=== PATIENT | female | born 1970 | race Caucasian/White ===

== ENCOUNTER → 2016-08-23 | Outpatient (CLI) | payer BC ==
--- NOTE | 2016-08-23 16:03 | REP ---
MR CERVICAL SPINE WITHOUT CONTRAST: HISTORY: Cervicalgia. A disc bulge is present at the C3-4 level. There is minimal effacement of the thecal sac without spinal cord compression. Facet hypertrophy is present on the left. This produces mild narrowing of the left C3 neural foramen. The right C3 neural foramen is patent. A disc bulge is present at the C4-5 level. There is minimal effacement of the thecal sac without spinal cord compression. Facet hypertrophy is present on the right. This produces minimal narrowing of the right C4 neural foramen. The left C4 neural foramen is patent. A disc bulge and small right paracentral disc protrusion with associated osteophyte formation are present at the C5-6 level. There is mild effacement of the thecal sac without spinal cord compression. Uncinate process hypertrophy is present on the right. This produces minimal narrowing of the C5 neural foramen. The left C5 neural foramen is patent. A small left paracentral disc protrusion is present at the C6-7 level. There is minimal effacement of the thecal sac without spinal cord compression. The C6 neural foramina are patent. There is no other disc bulge or herniation. The remaining neural foramina are patent. The spinal cord is normal in signal and intensity. There is no intradural or extramedullary lesion. The C4-5 through C6-7 intervertebral disc are decreased in height consistent with disc degeneration. Normal signal intensity is present in the cervical vertebral bodies. IMPRESSION: There is cervical spondylosis at the C3-4 through C6-7 levels without spinal cord compression. Signed by Shaq Calderon MD 08/23/2016 04:06 P
== END ==
LOC: M RAD 14:36
PROVIDERS: ATTEND Physician Assistant Medical
DX: M43.02 Spondylolysis, cervical region (principal)

== ENCOUNTER → 2016-08-29 | Outpatient (CLI) | payer BC ==
--- NOTE | 2016-08-30 08:11 | REPMRS ---
Patient History The patient states she had a clinical breast exam in 07/2016. Family history of breast cancer in mother at age 54. Digital Woman Screen Mammo: August 29, 2016 - Exam #: [id number] Bilateral CC and MLO view(s) were taken. Technologist: Audelia Jacob, Technologist Prior study comparison: July 05, 2015, digital woman screen mammo performed at [facility] to [facility]. June 24, 2014, digital woman screen mammo performed at [facility]. March 02, 2013, digital woman screen mammo performed at [facility]. FINDINGS: There are scattered fibroglandular densities. There has been no change in the appearance of the mammogram from the prior studies. There is a mild amount of scattered fibroglandular density which is fairly symmetric. There is no interval development of dominant mass, architectural distortion, or clustered microcalcification suggestive of malignancy. ASSESSMENT: BI-RADS/ACR category 1 mammogram. Negative. Recommendation Routine screening mammogram in 1 year (for women over age 40). This mammogram was interpreted with the aid of an FDA-approved computer-aided dectection system. Electronically Signed By: Darin Gottlieb MD 08/30/16 0811
== END ==
LOC: M WHC 16:26
PROVIDERS: ATTEND Physician Assistant Medical
DX: Z12.31 Encounter for screening mammogram for malignant neoplasm of breast (principal)

== ENCOUNTER → 2016-09-05 | Outpatient (REF) | payer BC ==
[2016-09-05 11:57] LABS: BASO # 0.1 K/mm3 (0.0-0.2); BASO % 0.8 % (0.0-1.0); EOS # 0.1 K/mm3 (0.0-0.50); EOS % 1.5 % (0.0-3.0); LYMPH # 1.8 K/mm3 (1.5-4.5); MEAN CORPUSCULAR HGB CONC 33.2 g/dl (32.0-36.5); MEAN CORPUSCULAR VOLUME 93.2 fl (80.0-96.0); MONO # 0.3 K/mm3 (0.0-0.8); MONO % 4.4 % (0.0-5.0); NEUTROPHILS % 68.3 % (36.0-66.0); RED CELL DISTRIBUTION WIDTH 13.1 % (11.5-14.5); WHITE BLOOD COUNT 7.2 K/mm3 (4.0-10.0)
== END ==
LOC: M LAB REF 11:27
PROVIDERS: ATTEND Physician Assistant Medical
DX: M62.50 Muscle wasting and atrophy, not elsewhere classified, unspecified site (principal)

== ENCOUNTER → 2016-11-11 | Outpatient (REF) | payer BC ==
[2016-11-11 10:58] LABS: ALBUMIN/GLOBULIN RATIO 1.33 (1.00-1.93); ALKALINE PHOSPHATASE 94 U/L (45-117); ALT/SGPT 12 U/L (12-78); ANION GAP 7 MEQ/L (8-16); AST/SGOT 15 U/L (15-37); BILIRUBIN,TOTAL 0.5 MG/DL (0.2-1.0); BLOOD UREA NITROGEN 18 MG/DL (7-18); CALCIUM LEVEL 9.1 MG/DL (8.5-10.1); CARBON DIOXIDE LEVEL 30 MEQ/L (21-32); CHLORIDE LEVEL 103 MEQ/L (98-107); CREATININE FOR GFR 0.73 MG/DL (0.55-1.02); GLOMERULAR FILTRATION RATE > 60.0 (>58); GLUCOSE, FASTING 80 MG/DL (70-105); POTASSIUM SERUM 3.9 MEQ/L (3.5-5.1); SODIUM LEVEL 140 MEQ/L (136-145)
[2016-11-13 00:06] LABS: Lyme Disease IgG/IgM Antibodie <0.91 ISR (0.00-0.90); Lyme Disease IgM Ab Quantitati <0.80 index (0.00-0.79); SJOGREN'S ANTI SS-A <0.2 AI (0.0-0.9); SJOGREN'S ANTI SS-B <0.2 AI (0.0-0.9)
[2016-11-14 09:57] LABS: ALBUMIN 4.35 GM/DL (3.29-5.55); ALBUMIN % 62.1 % (55.8-66.1); GAMMA GLOBULIN % 12.1 % (11.1-18.8)
== END ==
LOC: M LAB REF 10:15
PROVIDERS: ATTEND Physician Assistant Medical
DX: M19.90 Unspecified osteoarthritis, unspecified site (principal); R01.1 Cardiac murmur, unspecified

== ENCOUNTER → 2016-11-18 | Outpatient (REF) | payer BC | LOC: M LAB REF 10:32 | PROVIDERS: ATTEND Physician Assistant Medical | DX: M62.50 Muscle wasting and atrophy, not elsewhere classified, unspecified site (principal) ==

== ENCOUNTER → 2017-01-01 | Outpatient (CLI) | payer BC ==
--- NOTE | 2017-01-01 16:36 | REP ---
Clinical: Pain. Technique: AP, lateral, bilateral oblique views of the left hand. Findings: Mild age-related degenerative changes are appreciated primarily involving the interphalangeal joints. No acute fracture dislocation. Remainder examination appears normal. Impression: Mild degenerative changes involving the interphalangeal joints. Signed by Aden Green MD 01/01/2017 04:27 P
== END ==
LOC: M RAD 16:10
PROVIDERS: ATTEND Physician Assistant Medical
DX: M19.042 Primary osteoarthritis, left hand (principal)

== ENCOUNTER → 2017-02-20 | Outpatient (REF) | payer BC ==
[2017-02-20 17:31] LABS: ALBUMIN/GLOBULIN RATIO 1.33 (1.00-1.93); ALKALINE PHOSPHATASE 80 U/L (45-117); ALT/SGPT 13 U/L (12-78); ANION GAP 9 MEQ/L (8-16); AST/SGOT 18 U/L (15-37); BILIRUBIN,TOTAL 0.9 MG/DL (0.2-1.0); BLOOD UREA NITROGEN 13 MG/DL (7-18); CALCIUM LEVEL 9.1 MG/DL (8.5-10.1); CARBON DIOXIDE LEVEL 27 MEQ/L (21-32); CHLORIDE LEVEL 104 MEQ/L (98-107); CREATININE FOR GFR 0.78 MG/DL (0.55-1.02); GLOMERULAR FILTRATION RATE > 60.0 (>58); GLUCOSE, FASTING 141 MG/DL (70-105); POTASSIUM SERUM 3.7 MEQ/L (3.5-5.1); SODIUM LEVEL 140 MEQ/L (136-145)
[2017-02-20 17:37] LABS: BASO % 0.5 % (0.0-1.0); EOS # 0.1 K/mm3 (0.0-0.50); EOS % 0.9 % (0.0-3.0); LYMPH # 1.7 K/mm3 (1.5-4.5); LYMPH % 27.6 % (24.0-44.0); MEAN CORPUSCULAR HEMOGLOBIN 32.4 pg (27.0-33.0); MEAN CORPUSCULAR HGB CONC 34.2 g/dl (32.0-36.5); MEAN CORPUSCULAR VOLUME 94.8 fl (80.0-96.0); MONO # 0.2 K/mm3 (0.0-0.8); MONO % 3.4 % (0.0-5.0); NEUTROPHILS # 4.2 K/mm3 (1.8-7.7); NEUTROPHILS % 66.2 % (36.0-66.0); RED CELL DISTRIBUTION WIDTH 12.3 % (11.5-14.5); WHITE BLOOD COUNT 6.3 K/mm3 (4.0-10.0)
== END ==
LOC: M LAB REF 17:04
PROVIDERS: ATTEND Physician Assistant Medical
DX: R00.2 Palpitations (principal)

== ENCOUNTER → 2017-02-26 | Outpatient (REF) | payer BC ==
[2017-02-26 13:30] LABS: ALBUMIN 3.8 GM/DL (3.2-5.2); ALBUMIN/GLOBULIN RATIO 1.27 (1.00-1.93); ALKALINE PHOSPHATASE 86 U/L (45-117); ALT/SGPT 11 U/L (12-78); ANION GAP 8 MEQ/L (8-16); AST/SGOT 20 U/L (15-37); BILIRUBIN,TOTAL 0.5 MG/DL (0.2-1.0); BLOOD UREA NITROGEN 11 MG/DL (7-18); CALCIUM LEVEL 8.9 MG/DL (8.5-10.1); CARBON DIOXIDE LEVEL 24 MEQ/L (21-32); CHLORIDE LEVEL 107 MEQ/L (98-107); CHOLESTEROL LEVEL 168 MG/DL (<200); CREATININE FOR GFR 0.59 MG/DL (0.55-1.02); GLOMERULAR FILTRATION RATE > 60.0 (>58); GLUCOSE, FASTING 93 MG/DL (70-105); POTASSIUM SERUM 4.1 MEQ/L (3.5-5.1); SODIUM LEVEL 139 MEQ/L (136-145); TOTAL PROTEIN 6.8 GM/DL (6.4-8.2); TRIGLYCERIDES LEVEL 60 MG/DL (<150)
== END ==
LOC: M LAB REF 12:58
PROVIDERS: ATTEND Physician Assistant Medical
DX: R73.9 Hyperglycemia, unspecified (principal); Z68.37 Body mass index [BMI] 37.0-37.9, adult

== ENCOUNTER → 2017-05-06 | Outpatient (CLI) | payer BC ==
--- NOTE | 2017-05-07 06:01 | REP ---
DIAGNOSTIC MAMMOGRAM RIGHT BREAST WITH RIGHT BREAST ULTRASOUND: Diagnostic mammogram right breast performed. Reportedly there is a palpable abnormality inferior to the right nipple with redness and pain for 3 days. There is a family history of breast cancer in mother. Comparison made with multiple prior exams, most recent of which is 08/29/2016. Moderate fibroglandular tissue appears essentially unchanged with no mammographic evidence of a new mass or clustered microcalcifications. Real-time sonographic evaluation of the right breast is performed inferior to the nipple at the site of pain and redness. There is a subcutaneous heterogeneous nodule present which measures 0.8 x 1.1 x 0.9 cm. There is surrounding Doppler color flow. This may represent a subcutaneous sebaceous cyst. This is probably benign. IMPRESSION: ACR 3 probably benign. No change in the appearance of the mammogram of the right breast. By ultrasound inferior to the right nipple is a subcutaneous nodule which is quite superficial and given the pain and redness at this location, this probably represents a sebaceous cyst or infected subcutaneous cyst. Recommend followup ultrasound after appropriate treatment. This mammogram was interpreted with the aid of an FDA-approved computer-aided detection system. A. Negative x-ray reports should not delay biopsy if a dominant or clinically suspicious mass is present. B. Four to eight percent of cancers are not identified by x-ray. C. Adenosis and dense breasts may obscure an underlying neoplasm. The patient states she had a clinical breast exam in 04/2017. The patient letter being requested is M3. Signed by Chidi Kelley MD 05/07/2017 09:41 A
== END ==
LOC: M RAD 15:13
PROVIDERS: ATTEND Physician Assistant Medical
DX: N61.1 Abscess of the breast and nipple (principal)
CPT/HCPCS: 76642; G0206

== ENCOUNTER → 2017-05-07 | Outpatient (REF) | payer BC | LOC: M LAB REF 13:24 | PROVIDERS: ATTEND Surgery | DX: N61.1 Abscess of the breast and nipple (principal); L72.0 Epidermal cyst ==

== ENCOUNTER → 2017-09-16 | Outpatient (REF) | payer BC ==
[2017-09-16 14:50] LABS: BASO % 0.6 % (0.0-1.0); EOS # 0.2 10^3/uL (0.0-0.50); EOS % 2.4 % (0.0-3.0); HEMATOCRIT 43.4 % (36.0-47.0); HEMOGLOBIN 14.6 g/dl (12.0-16.0); IMMATURE GRANULOCYTE % 0.3 % (0-0); LYMPH # 1.6 10^3/uL (1.5-4.5); LYMPH % 23.2 % (24.0-44.0); MEAN CORPUSCULAR HEMOGLOBIN 31.2 pg (27.0-33.0); MEAN CORPUSCULAR HGB CONC 33.6 g/dl (32.0-36.5); MEAN CORPUSCULAR VOLUME 92.7 fl (80.0-96.0); MONO # 0.3 10^3/uL (0.0-0.8); MONO % 4.7 % (0.0-5.0); NEUTROPHILS # 4.7 10^3/uL (1.8-7.7); NEUTROPHILS % 68.8 % (36.0-66.0); PLATELET COUNT, AUTOMATED 285 10^3/uL (150-450); RED BLOOD COUNT 4.68 10^6/uL (4.00-5.40); RED CELL DISTRIBUTION WIDTH 13.1 % (11.5-14.5); WHITE BLOOD COUNT 6.8 10^3/uL (4.0-10.0)
[2017-09-16 15:10] LABS: ALBUMIN 4.4 GM/DL (3.2-5.2); ALBUMIN/GLOBULIN RATIO 1.38 (1.00-1.93); ALKALINE PHOSPHATASE 75 U/L (45-117); ALT/SGPT 11 U/L (12-78); ANION GAP 7 MEQ/L (8-16); AST/SGOT 14 U/L (7-37); BILIRUBIN,TOTAL 0.3 MG/DL (0.2-1.0); BLOOD UREA NITROGEN 9 MG/DL (7-18); CALCIUM LEVEL 9.2 MG/DL (8.5-10.1); CARBON DIOXIDE LEVEL 29 MEQ/L (21-32); CHLORIDE LEVEL 103 MEQ/L (98-107); CREATININE FOR GFR 0.57 MG/DL (0.55-1.30); FERRITIN 138 NG/ML (8-252); GLOMERULAR FILTRATION RATE > 60.0 (>58); GLUCOSE, FASTING 96 MG/DL (70-100); IRON (FE) 39 UG/DL (50-170); MAGNESIUM LEVEL 2.2 MG/DL (1.8-2.4); PERCENT SATURATION 12.6 % (13.2-45.0); PHOSPHORUS LEVEL 3.2 MG/DL (2.5-4.9); POTASSIUM SERUM 3.9 MEQ/L (3.5-5.1); SODIUM LEVEL 139 MEQ/L (136-145); TOTAL IRON BINDING CAPACITY 310 UG/DL (250-450); TOTAL PROTEIN 7.6 GM/DL (6.4-8.2)
[2017-09-16 15:13] LABS: TOTAL 25(OH) VITAMIN D 15.6 NG/ML (30.0-100.0)
[2017-09-16 15:14] LABS: FOLATE > 24.0 NG/ML
[2017-09-16 15:15] LABS: ESTIMATED AVERAGE GLUCOSE 91 MG/DL (60-110); HEMOGLOBIN A1c 4.8 %
[2017-09-16 15:18] LABS: VITAMIN B12 LEVEL 1505 PG/ML
== END ==
LOC: M LAB REF 14:31
DX: K91.2 Postsurgical malabsorption, not elsewhere classified (principal); Z98.84 Bariatric surgery status; E55.9 Vitamin D deficiency, unspecified
CPT/HCPCS: 82746

== ENCOUNTER → 2017-10-03 | Outpatient (CLI) | payer BC | LOC: M WHC 09:27 | DX: Z12.31 Encounter for screening mammogram for malignant neoplasm of breast (principal) | CPT/HCPCS: 77067 ==

== ENCOUNTER → 2017-10-07 | Outpatient (CLI) | payer BC ==
[2017-10-08 10:17] LABS: HEPATITIS B SURFACE ANTIGEN NEGATIVE (NEGATIVE)
[2017-10-09 10:14] LABS: HEPATITIS B CORE ANTIBODY IGG Negative (Negative)
== END ==
LOC: M WUC 15:10
DX: Z11.59 Encounter for screening for other viral diseases (principal)
CPT/HCPCS: 87340

== ENCOUNTER → 2017-10-09 | Outpatient (CLI) | payer BC ==
[2017-10-10 10:16] LABS: HEPATITIS B SURFACE ANTIBODY POSITIVE (POSITIVE)
== END ==
LOC: M LAB 13:18
DX: Z11.2 Encounter for screening for other bacterial diseases (principal)
CPT/HCPCS: 86706

== ENCOUNTER → 2018-02-24 | Outpatient (CLI) | payer BC ==
[2018-02-24 18:10] LABS: ALBUMIN 3.8 GM/DL (3.2-5.2); ALBUMIN/GLOBULIN RATIO 1.36 (1.00-1.93); ALKALINE PHOSPHATASE 87 U/L (45-117); ALT/SGPT 8 U/L (12-78); ANION GAP 8 MEQ/L (8-16); AST/SGOT 11 U/L (7-37); BILIRUBIN,TOTAL 0.3 MG/DL (0.2-1.0); BLOOD UREA NITROGEN 14 MG/DL (7-18); CALCIUM LEVEL 8.9 MG/DL (8.5-10.1); CARBON DIOXIDE LEVEL 28 MEQ/L (21-32); CHLORIDE LEVEL 107 MEQ/L (98-107); CREATININE FOR GFR 0.56 MG/DL (0.55-1.30); FERRITIN 103 NG/ML (8-252); GLOMERULAR FILTRATION RATE > 60.0 (>58); GLUCOSE, FASTING 123 MG/DL (70-100); IRON (FE) 62 UG/DL (50-170); MAGNESIUM LEVEL 1.7 MG/DL (1.8-2.4); PERCENT SATURATION 23.6 % (13.2-45.0); POTASSIUM SERUM 3.3 MEQ/L (3.5-5.1); SODIUM LEVEL 143 MEQ/L (136-145); TOTAL IRON BINDING CAPACITY 263 UG/DL (250-450); TOTAL PROTEIN 6.6 GM/DL (6.4-8.2)
[2018-02-24 18:25] LABS: TOTAL 25(OH) VITAMIN D 23.8 NG/ML (30.0-100.0)
[2018-02-24 18:59] LABS: BASO % 0.2 % (0.0-1.0); EOS % 0.1 % (0.0-3.0); HEMOGLOBIN 13.8 g/dl (12.0-15.5); IMMATURE GRANULOCYTE % 0.4 % (0-3.0); LYMPH # 0.7 10^3/uL (1.5-4.5); LYMPH % 8.5 % (24.0-44.0); MEAN CORPUSCULAR HEMOGLOBIN 31.9 pg (27.0-33.0); MEAN CORPUSCULAR HGB CONC 33.7 g/dl (32.0-36.5); MEAN CORPUSCULAR VOLUME 94.7 fl (80.0-96.0); MONO # 0.3 10^3/uL (0.0-0.8); MONO % 3.4 % (0.0-5.0); NEUTROPHILS # 7.1 10^3/uL (1.8-7.7); NEUTROPHILS % 87.4 % (36.0-66.0); PLATELET COUNT, AUTOMATED 283 10^3/uL (150-450); RED BLOOD COUNT 4.33 10^6/uL (4.00-5.40); WHITE BLOOD COUNT 8.1 10^3/uL (4.0-10.0)
[2018-02-24 22:18] LABS: ESTIMATED AVERAGE GLUCOSE 94 MG/DL (60-110); HEMOGLOBIN A1c 4.9 %
[2018-02-24 23:34] LABS: VITAMIN B12 LEVEL > 2000 PG/ML (247-911)
[2018-02-27 12:46] LABS: PRETREATED FOLATE FOR RBCFOL 17.3 NG/ML; RBC FOLATE 886.1 NG/ML (280-791)
== END ==
LOC: M WUC 11:00
DX: K91.2 Postsurgical malabsorption, not elsewhere classified (principal); Z98.84 Bariatric surgery status; E55.9 Vitamin D deficiency, unspecified
CPT/HCPCS: 83550

== ENCOUNTER 2018-11-18 07:26 | Emergency (ER) | payer BC ==
[~2018-11-18] VITALS: Ht 152.4 cm; Wt 67.1 kg
[2018-11-18] MEDS ORDERED: PEPT262T2 PO (07:34)
[2018-11-18] MEDS ORDERED: CITA40TA4 PO (07:34)
[2018-11-18] MEDS ORDERED: ZOLP10TA2 PO (07:34)
[2018-11-18] MEDS ORDERED: VITA500T3 PO (07:53)
[2018-11-18] MEDS ORDERED: XANA0.25 PO (07:53)
[2018-11-18] MEDS ORDERED: MULT200T7 PO (07:53)
[2018-11-18] MEDS ORDERED: PANTOPRAZOLE 40MG INJ (PROTONIX) (C9113) IV ONE (08:15)
[2018-11-18] MEDS ORDERED: NS 1,000 ML IV ONE (08:15)
[2018-11-18 08:54] LABS: BASO # 0.1 10^3/uL (0.0-0.2); BASO % 0.7 % (0.0-1.0); EOS # 0.1 10^3/uL (0.0-0.50); EOS % 1.4 % (0.0-3.0); HEMATOCRIT 43.4 % (36.0-47.0); HEMOGLOBIN 14.7 g/dl (12.0-15.5); LYMPH # 2.1 10^3/uL (1.5-4.5); LYMPH % 29.9 % (24.0-44.0); MEAN CORPUSCULAR HGB CONC 33.9 g/dl (32.0-36.5); MEAN CORPUSCULAR VOLUME 94.3 fl (80.0-96.0); MONO # 0.4 10^3/uL (0.0-0.8); MONO % 5.5 % (0.0-5.0); NEUTROPHILS # 4.4 10^3/uL (1.8-7.7); NEUTROPHILS % 62.1 % (36.0-66.0); PLATELET COUNT, AUTOMATED 278 10^3/uL (150-450); WHITE BLOOD COUNT 7.1 10^3/uL (4.0-10.0)
[2018-11-18 09:19] LABS: ALBUMIN 3.6 GM/DL (3.2-5.2); ALT/SGPT 13 U/L (12-78); AMYLASE 30 U/L (25-115); BILIRUBIN,DIRECT 0.2 MG/DL (0.0-0.2); BILIRUBIN,TOTAL 0.5 MG/DL (0.2-1.0); BLOOD UREA NITROGEN 11 MG/DL (7-18); CALCIUM LEVEL 8.3 MG/DL (8.5-10.1); CARBON DIOXIDE LEVEL 30 MEQ/L (21-32); CHLORIDE LEVEL 106 MEQ/L (98-107); CREATININE FOR GFR 0.67 MG/DL (0.55-1.30); GLOMERULAR FILTRATION RATE > 60.0 (>58); GLUCOSE, FASTING 97 MG/DL (70-100); LIPASE 59 U/L (73-393); POTASSIUM SERUM 3.4 MEQ/L (3.5-5.1); SODIUM LEVEL 140 MEQ/L (136-145); TOTAL PROTEIN 6.7 GM/DL (6.4-8.2)
--- NOTE | 2018-11-18 09:59 | REP ---
CT abdomen and pelvis without IV or oral contrast: History: Epigastric pain. No comparison study. 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 The lung bases are clear. There are sutures in the left upper quadrant consistent with gastric bypass procedure. There are granulomatous calcifications in the spleen. Spleen and the liver are normal in size and otherwise homogeneous. No gallbladder abnormality is seen. The pancreas is unremarkable. No adrenal lesion is seen on either side. There is no evidence of hydronephrosis or intrarenal calculus. Kidneys are morphologically intact. No retroperitoneal mass or adenopathy is observed. No uterine or ovarian abnormality is seen. Normal appendix is noted. Small and large intestinal bowel loops are unremarkable. There is some mildly opaque bowel content consistent with antacid ingestion. No abdominal wall defect is seen. Bone window settings show no bony destructive lesion. Impression: Status post gastric bypass surgery. Otherwise normal abdomen and pelvis CT study. Normal appendix noted. Electronically Signed by Abe Gottlieb MD 11/18/2018 11:09 A
[2018-11-18] MEDS ORDERED: PROT1TAB2 PO (10:19)
[2018-11-18] MEDS ORDERED: CARA1TAB6 PO (10:19)
[2018-11-18 10:28] VITALS: BP 119/59
--- NOTE | 2018-11-19 09:01 | ECGEPIP ---
Stationary ECG Study [facility] - ED Test Date: 2018-11-18 Pat Name: MAURY REINA Department: Room: - Gender: F Executive Admin: SHANNAN : 1970 Requested By: RANI BARRAGAN PA-C. Order Number: [id number] Reading MD: Sanjuana Pina Measurements Intervals [place] Rate: 59 P: 51 MA: 140 QRS: 15 QRSD: 85 T: -10 QT: 429 QTc: 425 Interpretive Statements SINUS BRADYCARDIA POSSIBLE LEFT ATRIAL ENLARGEMENT NSTTW ABNORMALITY NO PRIOR FOR COMPARISON Electronically Signed On 11-19-2018 9:01:07 EDT by Sanjuana Pina
== END 2018-11-18 10:33 | disposition home or self-care (01) ==
LOC: M ED 07:26
DX: R10.13 Epigastric pain (principal); R00.1 Bradycardia, unspecified; R94.31 Abnormal electrocardiogram [ECG] [EKG]; Z98.0 Intestinal bypass and anastomosis status; Z98.890 Other specified postprocedural states; Z88.1 Allergy status to other antibiotic agents; Z79.899 Other long term (current) drug therapy
CPT/HCPCS: 74176; 80048; 80076; 82150; 83605; 83690; 85025; 93005; 96374; 99284; C9113

== ENCOUNTER → 2019-01-23 | Outpatient (CLI) | payer BC ==
[~2019-01-23] MED LIST: CARA1TAB6 PO; CITA40TA4 PO; MULT200T7 PO; PEPT262T2 PO; PROT1TAB2 PO; VITA500T3 PO; XANA0.25 PO; ZOLP10TA2 PO
[2019-01-23 14:01] LABS: BASO % 0.9 % (0.0-1.0); EOS # 0.1 10^3/uL (0.0-0.50); EOS % 2.3 % (0.0-3.0); HEMOGLOBIN 13.6 g/dl (12.0-15.5); LYMPH # 1.9 10^3/uL (1.5-4.5); LYMPH % 42.3 % (24.0-44.0); MEAN CORPUSCULAR HEMOGLOBIN 32.3 pg (27.0-33.0); MEAN CORPUSCULAR HGB CONC 33.2 g/dl (32.0-36.5); MEAN CORPUSCULAR VOLUME 97.4 fl (80.0-96.0); MONO # 0.4 10^3/uL (0.0-0.8); MONO % 8.4 % (0.0-5.0); NEUTROPHILS % 45.6 % (36.0-66.0); PLATELET COUNT, AUTOMATED 212 10^3/uL (150-450); RED BLOOD COUNT 4.21 10^6/uL (4.00-5.40); WHITE BLOOD COUNT 4.4 10^3/uL (4.0-10.0)
[2019-01-23 14:07] LABS: ALBUMIN 3.5 GM/DL (3.2-5.2); ALT/SGPT 14 U/L (12-78); BILIRUBIN,TOTAL 0.7 MG/DL (0.2-1.0); BLOOD UREA NITROGEN 10 MG/DL (7-18); CALCIUM LEVEL 8.5 MG/DL (8.5-10.1); CARBON DIOXIDE LEVEL 32 MEQ/L (21-32); CHLORIDE LEVEL 105 MEQ/L (98-107); CREATININE FOR GFR 0.52 MG/DL (0.55-1.30); FERRITIN 74 NG/ML (8-252); GLOMERULAR FILTRATION RATE > 60.0 (>58); GLUCOSE, FASTING 83 MG/DL (70-100); IRON (FE) 210 UG/DL (50-170); MAGNESIUM LEVEL 1.9 MG/DL (1.8-2.4); PHOSPHORUS LEVEL 4.1 MG/DL (2.5-4.9); SODIUM LEVEL 141 MEQ/L (136-145)
[2019-01-23 14:18] LABS: HEMOGLOBIN A1c 4.4 %
[2019-01-25 11:15] LABS: TOTAL 25(OH) VITAMIN D 19.4 NG/ML (30.0-100.0); VITAMIN B12 LEVEL > 2000 PG/ML (247-911)
== END ==
LOC: M WUC 08:59
PROVIDERS: ATTEND Surgery
DX: K91.2 Postsurgical malabsorption, not elsewhere classified (principal); E55.9 Vitamin D deficiency, unspecified; Z98.84 Bariatric surgery status

== ENCOUNTER → 2019-01-23 | Outpatient (CLI) | payer BC ==
[2019-01-23 14:13] LABS: FREE T4 0.88 NG/DL (0.76-1.46); THYROID STIMULATING HORMONE 0.606 uIU/ML (0.358-3.740)
== END ==
LOC: M WUC 08:57
PROVIDERS: ATTEND Obstetrics & Gynecology
DX: N92.6 Irregular menstruation, unspecified (principal)

== ENCOUNTER → 2019-05-25 | Outpatient (CLI) | payer BC ==
[~2019-05-25] MED LIST changes: +CYAN500T8 PO; -VITA500T3 PO
--- NOTE | 2019-05-25 08:20 | REPMRS ---
Patient History The patient states she had a clinical breast exam in 01/2019. Family history of breast cancer at age 54 in mother. Benign excisional biopsy of the right breast, 2018. Taking hormonal contraceptives for 3 months. Digital Woman Screen Mammo: May 25, 2019 - Exam #: [id number] Bilateral CC and MLO view(s) were taken. Technologist: Miranda Ellington, Technologist Prior study comparison: October 03, 2017, digital woman screen mammo performed at [facility]. May 06, 2017, right breast digital mammo diagnostic unilateral, performed at [facility]. August 29, 2016, digital woman screen mammo performed at [facility]. FINDINGS: The breast tissue is heterogeneously dense. This may lower the sensitivity of mammography. There is a moderate amount of heterogeneously dense fibroglandular tissue which is fairly symmetric. There is no interval development of dominant mass, architectural distortion, or grouped microcalcification typical of malignancy. There has been no change in the appearance of the mammogram from the prior studies. 3-D tomosynthesis shows no additional findings. Assessment: BI-RADS/ACR category 1 mammogram. Negative Mammogram. Recommendation Breast MRI of both breasts in 6 months. Routine screening mammogram of both breasts in 1 year (for women over age 40). This patient's Lifetime Breast Cancer RIsk is estimated at 21.2 %. Annual screening Breast MRI scanniing is recommended for patient's whose lifetime risk assessment is over 20%. This mammogram was interpreted with the aid of an FDA-approved computer-aided dectection system. Electronically Signed By: Darin Gottlieb MD 05/25/19 1508
== END ==
LOC: M WHC 06:28
PROVIDERS: ATTEND Obstetrics & Gynecology
DX: Z12.31 Encounter for screening mammogram for malignant neoplasm of breast (principal); Z80.3 Family history of malignant neoplasm of breast

== ENCOUNTER → 2019-09-06 | Outpatient (CLI) | payer BC ==
--- NOTE | 2019-09-07 01:31 | REP ---
Clinical: Right shoulder pain. Technique: Internal rotation, external rotation, and Y view of the right shoulder. Findings: Cortical irregularity and early spurring at the acromioclavicular joint is appreciated. The subacromial space is normal. The glenohumeral joint appears intact and age appropriate. No periarticular calcifications or loose bodies are identified. The surrounding soft tissues are unremarkable. Impression: Mild degenerative changes at the acromioclavicular joint. Electronically Signed by Aden Green MD 09/07/2019 01:23 A
== END ==
LOC: M WUC 13:08
PROVIDERS: ATTEND Physician Assistant
DX: M25.511 Pain in right shoulder (principal); M19.011 Primary osteoarthritis, right shoulder

== ENCOUNTER → 2020-04-17 | Outpatient (CLI) | payer BC ==
[2020-04-17 13:54] LABS: BASO % 0.6 % (0.0-1.0); EOS # 0.1 10^3/uL (0.0-0.5); EOS % 1.5 % (0.0-3.0); HEMATOCRIT 42.8 % (36.0-47.0); HEMOGLOBIN 14.2 g/dl (12.0-15.5); LYMPH # 1.7 10^3/uL (1.5-5.0); LYMPH % 32.6 % (24.0-44.0); MEAN CORPUSCULAR HGB CONC 33.2 g/dl (32.0-36.5); MEAN CORPUSCULAR VOLUME 96.4 fl (80.0-96.0); MONO # 0.4 10^3/uL (0.0-0.8); MONO % 7.6 % (0.0-5.0); NEUTROPHILS % 57.5 % (36.0-66.0); PLATELET COUNT, AUTOMATED 265 10^3/uL (150-450); RED BLOOD COUNT 4.44 10^6/uL (4.00-5.40); WHITE BLOOD COUNT 5.3 10^3/uL (4.0-10.0)
[2020-04-17 14:05] LABS: ALBUMIN 3.9 GM/DL (3.2-5.2); ALT/SGPT 12 U/L (12-78); BILIRUBIN,TOTAL 0.5 MG/DL (0.2-1.0); BLOOD UREA NITROGEN 11 MG/DL (7-18); CALCIUM LEVEL 9.3 MG/DL (8.5-10.1); CARBON DIOXIDE LEVEL 30 MEQ/L (21-32); CHLORIDE LEVEL 105 MEQ/L (98-107); CHOLESTEROL LEVEL 184 MG/DL (<200); CHOLESTEROL RISK RATIO 1.896 (<5); CREATININE FOR GFR 0.59 MG/DL (0.55-1.30); GLOMERULAR FILTRATION RATE > 60.0 (>58); GLUCOSE, FASTING 75 MG/DL (70-100); HDL CHOLESTEROL 97 MG/DL (>40); IRON (FE) 116 UG/DL (50-170); LDL CHOLESTEROL 72 MG/DL (<100); NON-HDL-C 87 MG/DL; PERCENT SATURATION 32.1 % (13.2-45.0); POTASSIUM SERUM 4.2 MEQ/L (3.5-5.1); SODIUM LEVEL 140 MEQ/L (136-145); TOTAL IRON BINDING CAPACITY 361 UG/DL (250-450); TRIGLYCERIDES LEVEL 75 MG/DL (<150)
[2020-04-17 14:09] LABS: FOLATE 5.5 NG/ML; VITAMIN B12 LEVEL 748 PG/ML
== END ==
LOC: M WUC 09:00
PROVIDERS: ATTEND Physician Assistant Medical
DX: Z98.84 Bariatric surgery status (principal)

== ENCOUNTER → 2021-07-23 | Outpatient (REF) | payer BC ==
[~2021-07-23] MED LIST changes: +CYAN500T14 PO; -CYAN500T8 PO
== END ==
LOC: M LAB REF 11:41
PROVIDERS: ATTEND Internal Medicine
DX: Z98.84 Bariatric surgery status (principal)

== ENCOUNTER → 2022-05-30 | Outpatient (CLI) | payer BC ==
[~2022-05-30] MED LIST changes: -CITA40TA4 PO; +CITA40TA7 PO
== END ==
LOC: M PLARAD 14:53
PROVIDERS: ATTEND Pain Medicine Interventional Pain Medicine
DX: M96.1 Postlaminectomy syndrome, not elsewhere classified (principal); M50.222 Other cervical disc displacement at C5-C6 level; Z98.1 Arthrodesis status

== ENCOUNTER → 2022-06-12 | Outpatient (CLI) | payer BC | LOC: M WHC 06:47 | PROVIDERS: ATTEND Internal Medicine | DX: Z12.31 Encounter for screening mammogram for malignant neoplasm of breast (principal) ==

== ENCOUNTER 2023-03-01 07:20 | Emergency (ER) | payer BC ==
[~2023-03-01] VITALS: Ht 152.4 cm; Wt 76.5 kg
[2023-03-01] MEDS ORDERED: NORCO, ANEXSIA 5/325MG TABLET (HYDROcodone/ACETAMINOPHEN) PO ONE (08:55)
[2023-03-01] MEDS ORDERED: HYDR-3713 PO (09:31)
[2023-03-01 09:32] VITALS: BP 180/93; TEMP 96.8; O2SAT 98
== END 2023-03-01 10:14 | disposition home or self-care (01) ==
LOC: M ED 07:20
DX: S42.212A Unspecified displaced fracture of surgical neck of left humerus, initial encounter for closed fracture (principal); S42.352A Displaced comminuted fracture of shaft of humerus, left arm, initial encounter for closed fracture; W19.XXXA Unspecified fall, initial encounter; Y92.009 Unspecified place in unspecified non-institutional (private) residence as the place of occurrence of the external cause; F41.9 Anxiety disorder, unspecified; F32.A Depression, unspecified; Z98.84 Bariatric surgery status; F17.290 Nicotine dependence, other tobacco product, uncomplicated; Z79.899 Other long term (current) drug therapy

== ENCOUNTER → 2023-03-05 | Outpatient (CLI) | payer BC ==
[~2023-03-05] MED LIST changes: +HYDR-3713 PO
== END ==
LOC: M PLAIMG 13:57
PROVIDERS: ATTEND Physician Assistant
DX: S42.212A Unspecified displaced fracture of surgical neck of left humerus, initial encounter for closed fracture (principal); S42.292A Other displaced fracture of upper end of left humerus, initial encounter for closed fracture; Y92.9 Unspecified place or not applicable; Y93.9 Activity, unspecified; X58.XXXA Exposure to other specified factors, initial encounter; Y99.9 Unspecified external cause status

== ENCOUNTER 2023-03-12 09:05 | Day surgery (SDC) | payer BC ==
[~2023-03-12] VITALS: Ht 152.4 cm; Wt 78.0 kg
[~2023-03-12 09:05] MED LIST changes: +AMIT50TA PO; +GABA-282 PO; +OXYC1TAB23
[2023-03-12] MEDS ORDERED: ROPIvacaine 0.5% 30ML VIAL PN ONE (10:55)
[2023-03-12] MEDS: MIDAZOLAM INJ 2MG/2ML VIAL IV PRN ×2 (11:18→11:20)
[2023-03-12] MEDS: fentaNYL 100 MCG/2 ML INJECTION IV PRN ×2 (11:18→11:20)
[2023-03-12] MEDS ORDERED: BACITRACIN OINTMENT 30GM TUBE As Ordered ONE (11:37)
[2023-03-12] MEDS ORDERED: ceFAZolin 2 GM/D5W 50 ML IV BAG As Ordered ONE (11:59)
[2023-03-12] MEDS ORDERED: LIDOCAINE W/EPINEPHRINE 1% 20ML VIAL As Ordered ONE (12:15)
[2023-03-12] MEDS ORDERED: propofoL 200 MG/20 ML VIAL As Ordered ONE (12:22)
[2023-03-12] MEDS ORDERED: LIDOCAINE 2% 100MG/5ML SDV (FOR ANES.) As Ordered ONE (12:22)
[2023-03-12] MEDS ORDERED: MIDAZOLAM INJ 2MG/2ML VIAL As Ordered ONE (12:22)
[2023-03-12] MEDS ORDERED: KETOROLAC 60MG 2ML VIAL As Ordered ONE (12:22)
[2023-03-12] MEDS ORDERED: fentaNYL 100 MCG/2 ML INJECTION As Ordered ONE (12:22)
[2023-03-12] MEDS ORDERED: ONDANSETRON 4MG 2ML VIAL As Ordered ONE (12:22)
[2023-03-12] MEDS ORDERED: ePHEDrine SULFATE 25 MG/5 ML(5MG/ML) SYRINGE As Ordered ONE ×2 (12:23→13:01)
[2023-03-12] MEDS ORDERED: LR 1,000 ML IV SCH (14:20)
[2023-03-12] MEDS ORDERED: fentaNYL 100 MCG/2 ML INJECTION IV PRN (14:20)
[2023-03-12] MEDS ORDERED: oxyCODONE 5MG TAB PO PRN (14:20)
[2023-03-12] MEDS ORDERED: ONDANSETRON 4MG 2ML VIAL IV PRN (14:20)
[2023-03-12] MEDS ORDERED: PERC5TAB12 PO (14:52)
[2023-03-12 16:00] VITALS: BP 132/71; TEMP 98.6; O2SAT 97
== END 2023-03-12 16:12 | disposition home or self-care (01) ==
LOC: M SDC 09:05
PROVIDERS: ATTEND Orthopaedic Surgery Hand Surgery
DX: S42.202A Unspecified fracture of upper end of left humerus, initial encounter for closed fracture (principal); F41.9 Anxiety disorder, unspecified; F32.A Depression, unspecified; F17.200 Nicotine dependence, unspecified, uncomplicated; Z79.899 Other long term (current) drug therapy
CPT/HCPCS: 23615; 64415; 76000; 93005; C1713; J0690; J1100; J1885; J2250; J2405; J3010

== ENCOUNTER → 2023-03-24 | Outpatient (CLI) | payer BC ==
[~2023-03-24] MED LIST changes: +PERC5TAB12 PO
== END ==
LOC: M SOG 07:56
PROVIDERS: ATTEND Physician Assistant
DX: S42.231D 3-part fracture of surgical neck of right humerus, subsequent encounter for fracture with routine healing (principal); M79.89 Other specified soft tissue disorders

== ENCOUNTER → 2023-04-08 | Outpatient (CLI) | payer BC | LOC: M SOG 11:12 | PROVIDERS: ATTEND Orthopaedic Surgery Hand Surgery | DX: S42.24 4-part fracture of surgical neck of humerus (principal) ==

== ENCOUNTER 2023-05-28 01:13 | Observation (INO) | payer BC ==
[~2023-05-28] VITALS: Ht 152.4 cm; Wt 75.0 kg
[2023-05-28] MEDS ORDERED: AMPICILLIN SOD/SULBACTAM SOD 3 GM in D5W MINI-BAG PLUS 100 ML IV ONE (03:55)
[2023-05-28] MEDS ORDERED: NS 1,000 ML IV SCH (03:55)
[2023-05-28] MEDS ORDERED: ONDANSETRON 4MG 2ML VIAL IV ONE (04:20)
[2023-05-28] MEDS: MORPHINE 2 MG/ML 1ML VIAL IV PRN ×2 (04:36→04:58)
[2023-05-28 04:40] LABS: BASO # 0.1 10^3/uL (0.0-0.2); BASO % 0.5 % (0.0-1.0); EOS % 0.1 % (0.0-3.0); HEMATOCRIT 44.4 % (36.0-47.0); LYMPH # 1.8 10^3/uL (1.5-5.0); LYMPH % 18.5 % (24.0-44.0); MEAN CORPUSCULAR HEMOGLOBIN 30.7 pg (27.0-33.0); MEAN CORPUSCULAR HGB CONC 33.8 g/dl (32.0-36.5); MONO # 0.6 10^3/uL (0.0-0.8); NEUTROPHILS # 7.1 10^3/uL (1.5-8.5); NEUTROPHILS % 74.7 % (36.0-66.0); PLATELET COUNT, AUTOMATED 320 10^3/uL (150-450); RED BLOOD COUNT 4.88 10^6/uL (4.00-5.40); WHITE BLOOD COUNT 9.5 10^3/uL (4.0-10.0)
[2023-05-28 05:04] LABS: BLOOD UREA NITROGEN 9 MG/DL (9-23); CARBON DIOXIDE LEVEL 28 MMOL/L (20-31); CHLORIDE LEVEL 102 MMOL/L (98-107); GLOMERULAR FILTRATION RATE > 60.0 (>51); GLUCOSE, FASTING 106 MG/DL (60-100); POTASSIUM SERUM 4.2 MMOL/L (3.5-5.1); SODIUM LEVEL 138 MMOL/L (136-145)
[2023-05-28] MEDS ORDERED: KETOROLAC 30 MG/ML 1ML VIAL IV PRN (06:15)
[2023-05-28] MEDS ORDERED: NORCO, ANEXSIA 5/325MG TABLET (HYDROcodone/ACETAMINOPHEN) PO PRN ×2 (06:15→11:55)
[2023-05-28] MEDS ORDERED: ONDANSETRON 4MG 2ML VIAL IV PRN (06:15)
[2023-05-28] MEDS ORDERED: AMIT50TA PO (06:17)
[2023-05-28] MEDS ORDERED: HOME MED LIST COMPLETE! XX SCH (06:20)
[2023-05-28] MEDS: LR 1,000 ML IV SCH ×2 (06:29→11:22)
[2023-05-28 08:00] VITALS: BP 137/78; TEMP 97.3; O2SAT 97
[2023-05-28] MEDS: AMPICILLIN SOD/SULBACTAM SOD 3 GM in D5W MINI-BAG PLUS 100 ML IV SCH ×2 (11:21→16:13)
[2023-05-28] MEDS ORDERED: MIDAZOLAM INJ 2MG/2ML VIAL As Ordered ONE (13:26)
[2023-05-28] MEDS ORDERED: dexmedeTOMIDine (4MCG/ML)200MCG/50ML BTL (PRECEDEX) As Ordered ONE (13:26)
[2023-05-28] MEDS ORDERED: LIDOCAINE 2% 100MG/5ML SDV (FOR ANES.) As Ordered ONE (13:26)
[2023-05-28] MEDS ORDERED: ONDANSETRON 4MG 2ML VIAL As Ordered ONE (13:26)
[2023-05-28] MEDS ORDERED: propofoL 200 MG/20 ML VIAL As Ordered ONE (13:26)
[2023-05-28] MEDS ORDERED: fentaNYL 100 MCG/2 ML INJECTION As Ordered ONE (13:26)
[2023-05-28] MEDS ORDERED: ceFAZolin 1GM VIAL As Ordered ONE (13:31)
[2023-05-28] MEDS ORDERED: KETOROLAC 60MG 2ML VIAL As Ordered ONE (13:47)
[2023-05-28] MEDS ORDERED: PERC5TAB12 PO (14:30)
[2023-05-28] MEDS ORDERED: AMOX875T2 PO (14:36)
[2023-05-28 15:15] VITALS: BP 118/70; TEMP 97.7; O2SAT 97
== END 2023-05-28 17:45 | disposition home or self-care (01) ==
LOC: M ED 01:13 → M ED INP 01:14 → M MS5PR 07:55
PROVIDERS: ADMIT Internal Medicine; ATTEND Student in an Organized Health Care Education/Training Program
DX: S61.301A Unspecified open wound of left index finger with damage to nail, initial encounter (principal); W54.0XXA Bitten by dog, initial encounter; Y92.89 Other specified places as the place of occurrence of the external cause; Y99.9 Unspecified external cause status; Y93.9 Activity, unspecified
CPT/HCPCS: 11012; 26735; 71045; 73130; 76000; 80048; 85025; 87635; 93005; 96361; 96365; 96366; 96375; 96376; 99284; C1713; J0295; J0585; J0665; J0690; J1100; J1885; J2250; J2405; J3010

== ENCOUNTER → 2023-08-04 | Outpatient (CLI) | payer BC ==
[~2023-08-04] MED LIST changes: +AMOX875T2 PO
== END ==
LOC: M SOG 08:10
PROVIDERS: ATTEND Physician Assistant
DX: S62.631B Displaced fracture of distal phalanx of left index finger, initial encounter for open fracture (principal); Z53.9 Procedure and treatment not carried out, unspecified reason

== ENCOUNTER → 2023-10-13 | Outpatient (REF) | payer BC ==
[2023-10-13 18:02] LABS: TOTAL 25(OH) VITAMIN D 7.4 NG/ML (20.0-100.0)
[2023-10-13 18:05] LABS: FOLATE 11.1 NG/ML (>5.4)
[2023-10-13 18:06] LABS: PERCENT SATURATION 16.8 % (13.2-45.0)
== END ==
LOC: M LAB REF 16:06
PROVIDERS: ATTEND Internal Medicine
DX: Z98.84 Bariatric surgery status (principal)

== ENCOUNTER → 2023-10-31 | Outpatient (CLI) | payer BC | LOC: M WHC 12:49 | PROVIDERS: ATTEND Internal Medicine | DX: Z12.31 Encounter for screening mammogram for malignant neoplasm of breast (principal) ==

== ENCOUNTER 2023-12-13 18:41 | Emergency (ER) | payer BC, SELFPAY ==
[2023-12-13] MEDS: MORPHINE 4 MG/ML 1ML VIAL IV ONE (19:33)
[2023-12-13 19:39] LABS: BASO % 0.5 % (0.0-1.0); EOS % 0.3 % (0.0-3.0); HEMATOCRIT 46.7 % (36.0-47.0); HEMOGLOBIN 15.3 g/dl (12.0-15.5); LYMPH # 1.1 10^3/uL (1.5-5.0); LYMPH % 18.5 % (24.0-44.0); MEAN CORPUSCULAR HEMOGLOBIN 30.2 pg (27.0-33.0); MEAN CORPUSCULAR HGB CONC 32.8 g/dl (32.0-36.5); MEAN CORPUSCULAR VOLUME 92.1 fl (80.0-96.0); MONO # 0.3 10^3/uL (0.0-0.8); MONO % 5.2 % (2.0-8.0); NEUTROPHILS # 4.6 10^3/uL (1.5-8.5); NEUTROPHILS % 75.3 % (36.0-66.0); PLATELET COUNT, AUTOMATED 256 10^3/uL (150-450); RED BLOOD COUNT 5.07 10^6/uL (4.00-5.40); WHITE BLOOD COUNT 6.1 10^3/uL (4.0-10.0)
[2023-12-13 19:52] LABS: INR 0.84; PROTHROMBIN TIME 11.3 SECONDS (12.5-14.5)
[2023-12-13 20:07] LABS: BLOOD UREA NITROGEN 9 MG/DL (9-23); CALCIUM LEVEL 9.1 MG/DL (8.5-10.1); CARBON DIOXIDE LEVEL 27 MMOL/L (20-31); CHLORIDE LEVEL 100 MMOL/L (98-107); CREATININE FOR GFR 0.66 MG/DL (0.55-1.30); GLOMERULAR FILTRATION RATE > 60.0 (>51); GLUCOSE, FASTING 109 MG/DL (60-100); POTASSIUM SERUM 3.3 MMOL/L (3.5-5.1); SODIUM LEVEL 139 MMOL/L (136-145)
[2023-12-13] MEDS: KETOROLAC 30 MG/ML 1ML VIAL IV ONE (20:14)
[2023-12-13] MEDS: HYDROMORPHONE HCL 0.5 MG/ 0.5 ML SYRINGE IV ONE (21:56)
[2023-12-13] MEDS ORDERED: PERC5TAB12 PO (23:17)
[2023-12-13] MEDS ORDERED: MIRA3350 PO (23:17)
[2023-12-13] MEDS: LIDOCAINE 1% MDV 20ML VIAL INFIL ONE (23:19)
[2023-12-14] MEDS: HYDROMORPHONE HCL 0.5 MG/ 0.5 ML SYRINGE IV ONE (00:09)
[2023-12-14 01:26] VITALS: BP 164/74; TEMP 98.4; O2SAT 96
[2023-12-14] MEDS: PERCOCET 5MG/325MG TAB PO ONE (01:42)
== END 2023-12-14 01:48 | disposition home or self-care (01) ==
LOC: M ED 18:41
DX: S52.591A Other fractures of lower end of right radius, initial encounter for closed fracture (principal); W01.10XA Fall on same level from slipping, tripping and stumbling with subsequent striking against unspecified object, initial encounter; Y92.9 Unspecified place or not applicable; Y93.9 Activity, unspecified; Y99.9 Unspecified external cause status; E55.9 Vitamin D deficiency, unspecified; M81.0 Age-related osteoporosis without current pathological fracture; G25.81 Restless legs syndrome; F17.290 Nicotine dependence, other tobacco product, uncomplicated; Z98.84 Bariatric surgery status; Z98.1 Arthrodesis status
CPT/HCPCS: 25600; 73080; 73090; 73100; 73110; 73200; 80048; 85025; 85610; 86850; 86900; 86901; 96374; 96375; 96376; 99284; J1170; J1885

== ENCOUNTER 2023-12-17 10:24 | Day surgery (SDC) | payer BC ==
[~2023-12-17] VITALS: Ht 152.4 cm; Wt 78.5 kg
[~2023-12-17 10:24] MED LIST changes: +MIRA3350 PO
[2023-12-17] MEDS ORDERED: LR 1,000 ML IV SCH (11:20)
[2023-12-17] MEDS ORDERED: BACITRACIN OINTMENT 30GM TUBE As Ordered ONE (11:55)
[2023-12-17] MEDS ORDERED: ONDANSETRON 4MG 2ML VIAL As Ordered ONE (12:08)
[2023-12-17] MEDS ORDERED: ACETAMINOPHEN 1000MG 100ML IV BAG As Ordered ONE (12:08)
[2023-12-17] MEDS ORDERED: propofoL 200 MG/20 ML VIAL As Ordered ONE (12:08)
[2023-12-17] MEDS: MIDAZOLAM INJ 2MG/2ML VIAL IV PRN (12:08)
[2023-12-17] MEDS: ROPIvacaine 0.5% 30ML VIAL PN ONE (12:23)
[2023-12-17] MEDS: dexAMETHasone 10MG/1ML VIAL PRES.FREE PN ONE (12:23)
[2023-12-17] MEDS: EPINEPHrine INJ 1 MG/ML 1ML AMP PN ONE (12:23)
[2023-12-17] MEDS: MIDAZOLAM INJ 2MG/2ML VIAL IV STA (12:24)
[2023-12-17] MEDS: LIDOCAINE 1% SDV 30ML VIAL SC SCH (12:24)
[2023-12-17] MEDS: fentaNYL 100 MCG/2 ML INJECTION IV PRN (12:25)
[2023-12-17] MEDS: ceFAZolin 2 GM/D5W 50 ML IV BAG As Ordered ONE (13:05)
[2023-12-17] MEDS ORDERED: fentaNYL 100 MCG/2 ML INJECTION IV PRN (14:00)
[2023-12-17] MEDS ORDERED: oxyCODONE 5MG TAB PO PRN (14:00)
[2023-12-17] MEDS ORDERED: ONDANSETRON 4MG 2ML VIAL IV PRN (14:00)
[2023-12-17] MEDS ORDERED: PERCOCET PO (14:12)
[2023-12-17] MEDS ORDERED: ONDA4TAB6 PO (14:14)
[2023-12-17 14:47] VITALS: BP 173/90; TEMP 98; O2SAT 96
== END 2023-12-17 15:18 | disposition home or self-care (01) ==
LOC: M SDC 10:24
PROVIDERS: ATTEND Orthopaedic Surgery Hand Surgery
DX: S52.571A Other intraarticular fracture of lower end of right radius, initial encounter for closed fracture (principal); Z87.891 Personal history of nicotine dependence; Z98.84 Bariatric surgery status; Y92.009 Unspecified place in unspecified non-institutional (private) residence as the place of occurrence of the external cause; Y99.9 Unspecified external cause status
CPT/HCPCS: 25609; 64418; 76000; C1713; J0131; J0665; J0690; J1100; J2250; J2405; J3010

== ENCOUNTER → 2023-12-24 | Outpatient (CLI) | payer BC ==
[~2023-12-24] MED LIST changes: +ONDA4TAB6 PO; +PERCOCET PO
== END ==
LOC: M SOG 14:10
PROVIDERS: ATTEND Physician Assistant
DX: S52.501D Unspecified fracture of the lower end of right radius, subsequent encounter for closed fracture with routine healing (principal); M79.89 Other specified soft tissue disorders

== ENCOUNTER 2024-01-14 10:01 | Day surgery (SDC) | payer BC ==
[~2024-01-14] VITALS: Ht 152.4 cm; Wt 76.6 kg
[2024-01-14] MEDS: NS 1,000 ML IV ONE (06:00)
[~2024-01-14 10:01] MED LIST changes: +FERR30CA PO; +PHEN30CA21 PO; +TRAZ-252 PO; +VITA1CAP25 PO
[2024-01-14] MEDS ORDERED: LIDOCAINE 2% 100MG/5ML SDV (FOR ANES.) As Ordered ONE (10:41)
[2024-01-14] MEDS ORDERED: propofoL 200 MG/20 ML VIAL As Ordered ONE (10:42)
[2024-01-14 12:57] VITALS: TEMP 99.5
[2024-01-14 13:27] VITALS: BP 177/85; O2SAT 100
== END 2024-01-14 13:35 | disposition home or self-care (01) ==
LOC: M OPP 10:01
PROVIDERS: ATTEND Surgery
DX: Z12.11 Encounter for screening for malignant neoplasm of colon (principal); D12.3 Benign neoplasm of transverse colon; K64.4 Residual hemorrhoidal skin tags; F17.290 Nicotine dependence, other tobacco product, uncomplicated; Z98.84 Bariatric surgery status; Z79.899 Other long term (current) drug therapy

== ENCOUNTER → 2024-01-29 | Outpatient (REF) | payer BC ==
[~2024-01-29] MED LIST changes: +ONDA-282 PO; -ONDA4TAB6 PO
[2024-01-29 19:44] LABS: FERRITIN 67.2 NG/ML (7.3-270.7)
[2024-01-29 19:45] LABS: PERCENT SATURATION 24.4 % (13.2-45.0)
== END ==
LOC: M LAB REF 16:27
PROVIDERS: ATTEND Internal Medicine
DX: E61.1 Iron deficiency (principal)

== ENCOUNTER → 2024-02-09 | Outpatient (CLI) | payer BC | LOC: M WHC 14:01 | PROVIDERS: ATTEND Internal Medicine | DX: S62.141A Displaced fracture of body of hamate [unciform] bone, right wrist, initial encounter for closed fracture (principal); Z13.820 Encounter for screening for osteoporosis; M85.851 Other specified disorders of bone density and structure, right thigh; M85.852 Other specified disorders of bone density and structure, left thigh; X58.XXXA Exposure to other specified factors, initial encounter; Y92.9 Unspecified place or not applicable; Y93.9 Activity, unspecified; Y99.9 Unspecified external cause status ==

== ENCOUNTER → 2024-02-23 | Outpatient (CLI) | payer BC | LOC: M SOG 07:54 | PROVIDERS: ATTEND Physician Assistant | DX: S52.501A Unspecified fracture of the lower end of right radius, initial encounter for closed fracture (principal); Y93.9 Activity, unspecified; Y92.9 Unspecified place or not applicable ==

== ENCOUNTER → 2024-04-05 | Outpatient (CLI) | payer BC | LOC: M SOG 08:15 | PROVIDERS: ATTEND Physician Assistant | DX: S52.501A Unspecified fracture of the lower end of right radius, initial encounter for closed fracture (principal); Z53.9 Procedure and treatment not carried out, unspecified reason ==

== ENCOUNTER 2024-06-14 12:09 | Emergency (ER) | payer BC ==
[~2024-06-14] VITALS: Ht 152.4 cm; Wt 75.0 kg
[~2024-06-14 12:09] MED LIST changes: +GABA-1172 PO; -GABA-282 PO; -MULT200T7 PO; +MULT200T9 PO
[2024-06-14 13:24] LABS: BASO % 0.3 % (0.0-1.0); EOS # 0.1 10^3/uL (0.0-0.5); EOS % 0.7 % (0.0-3.0); HEMATOCRIT 43.6 % (36.0-47.0); HEMOGLOBIN 14.5 g/dl (12.0-15.5); LYMPH # 1.7 10^3/uL (1.5-5.0); LYMPH % 18.8 % (24.0-44.0); MEAN CORPUSCULAR HGB CONC 33.3 g/dl (32.0-36.5); MEAN CORPUSCULAR VOLUME 96.2 fl (80.0-96.0); MONO # 0.7 10^3/uL (0.0-0.8); MONO % 7.2 % (2.0-8.0); NEUTROPHILS # 6.6 10^3/uL (1.5-8.5); NEUTROPHILS % 72.8 % (36.0-66.0); RED BLOOD COUNT 4.53 10^6/uL (4.00-5.40)
[2024-06-14 13:33] LABS: BLOOD UREA NITROGEN 13 MG/DL (9-23); CALCIUM LEVEL 9.5 MG/DL (8.5-10.1); CARBON DIOXIDE LEVEL 25 MMOL/L (20-31); CHLORIDE LEVEL 108 MMOL/L (98-107); CREATININE FOR GFR 0.52 MG/DL (0.55-1.30); GLOMERULAR FILTRATION RATE > 60.0 (>51); GLUCOSE, FASTING 109 MG/DL (60-100); POTASSIUM SERUM 4.1 MMOL/L (3.5-5.1); SODIUM LEVEL 140 MMOL/L (136-145)
[2024-06-14 13:34] LABS: CK-MB VALUE MASS < 1.0 NG/ML (<3.6)
[2024-06-14 13:35] LABS: CPK CREATINE PHOSPHOKINASE 66 U/L (34-145); MB/CK RELATIVE INDEX 1.51 (< OR =4)
[2024-06-14 13:40] LABS: PLATELET COUNT, AUTOMATED 234 10^3/uL (150-450)
[2024-06-14] MEDS: ONDANSETRON 4MG 2ML VIAL IV ONE (14:17)
[2024-06-14] MEDS: MORPHINE 4 MG/ML 1ML VIAL IV PRN (14:17)
[2024-06-14] MEDS: NS 1,000 ML IV SCH ×2 (14:18→18:14)
[2024-06-14 14:27] LABS: LIPASE 36 U/L (12-53)
[2024-06-14 14:29] LABS: ALBUMIN 3.6 G/DL (3.2-5.2); ALKALINE PHOSPHATASE 120 U/L (35-104); ALT/SGPT 11 U/L (7.0-40); AMYLASE 80 U/L (30-118); AST/SGOT 101 U/L (<34); BILIRUBIN,DIRECT 0.5 MG/DL (<0.4); TOTAL PROTEIN 6.7 G/DL (5.7-8.2)
[2024-06-14] MEDS ORDERED: ISOVUE-370 76% 100ML VIAL As Ordered ONE (14:52)
[2024-06-14] MEDS ORDERED: MORPHINE 2 MG/ML 1ML VIAL IV PRN (14:55)
[2024-06-14 15:02] LABS: CK-MB VALUE MASS < 1.0 NG/ML (<3.6)
[2024-06-14 15:03] LABS: CPK CREATINE PHOSPHOKINASE 51 U/L (34-145); MB/CK RELATIVE INDEX 1.96 (< OR =4)
[2024-06-14] MEDS: PIPERACILLIN/TAZOBACTAM SOD 4.5 GM in DEXTROSE 5% (D5W) ADV/MINI-BAG 50 ML IV ONE (16:04)
[2024-06-14] MEDS: ACETAMINOPHEN 325 MG TAB PO ONE (16:05)
[2024-06-14] MEDS: NS 1,000 ML IV ONE (16:53)
[2024-06-14] MEDS ORDERED: CALC1CAP34 PO (18:20)
[2024-06-14] MEDS ORDERED: TRAZ-257 PO (18:20)
[2024-06-14] MEDS ORDERED: HOME MED LIST COMPLETE! XX SCH (18:20)
[2024-06-14] MEDS ORDERED: SIME1CAP4 PO (18:20)
[2024-06-14] MEDS ORDERED: FERR325T3 PO (18:20)
[2024-06-14] MEDS: MORPHINE 2 MG/ML 1ML VIAL IV PRN (19:08)
[2024-06-14 19:30] VITALS: BP 123/62; O2SAT 95
[2024-06-14 19:40] VITALS: TEMP 97.7
== END 2024-06-14 19:45 | disposition short-term general hospital (02) ==
LOC: M ED 12:09
DX: K80.01 Calculus of gallbladder with acute cholecystitis with obstruction (principal); F41.9 Anxiety disorder, unspecified; Z98.84 Bariatric surgery status
CPT/HCPCS: 71045; 71275; 74177; 80048; 80076; 82150; 82550; 82553; 83605; 83690; 83880; 84484; 85025; 87040; 87077; 87186; 93005; 93041; 94760; 96365; 96375; 96376; 99285; J2405; J2543; Q9967

== ENCOUNTER → 2025-05-24 | Outpatient (CLI) | payer BC ==
[~2025-05-24] MED LIST changes: +CALC1CAP34 PO; +FERR325T3 PO; +SIME1CAP4 PO; +TRAZ-257 PO; +ZOLP10TA11 PO; -ZOLP10TA2 PO
== END ==
LOC: M WHC 14:47
PROVIDERS: ATTEND Internal Medicine
DX: Z12.31 Encounter for screening mammogram for malignant neoplasm of breast (principal)